=== PATIENT | male | born 1990 | race Caucasian/White ===

== ENCOUNTER 2016-09-06 17:02 | Emergency (ER) | payer MEDICAID ==
[2016-09-06 17:40] VITALS: BP 134/98
[2016-09-06] MEDS ORDERED: Ketorolac 60 MG/2 ML SDV IM ONE (17:58)
[2016-09-06] MEDS ORDERED: cefTRIAXone 1 GM, Lidocaine 1% 2.1 ML IM ONE ×2 (17:58)
[2016-09-06] MEDS ORDERED: Acetaminophen/oxyCODONE 325-5 MG Tab PO ONE (17:59)
--- NOTE | 2016-09-06 18:04 | EDM.PDOC ---
ED HPI GENERAL MEDICAL PROBLEM - General Chief Complaint: ENT Problem Stated Complaint: SWOLLEN JAW Time Seen by Provider: 09/06/16 17:59 Source of Information: Reports: Patient History Limitations: Reports: No Limitations - History of Present Illness INITIAL COMMENTS - FREE TEXT/NARRATIVE: pt has a painful jaw on the rt. He has had some pain for 2 weeks but today it is severe. He is noticing a definite lump on his lower jaw. Onset: Gradual Duration: Day(s): Location: Reports: Face Associated Symptoms: Reports: No Other Symptoms Right Lower Oral/Mouth Pain Score (Numeric/FACES): 8 - Related Data Allergies Allergy/AdvReac Type Severity Reaction Status Date / Time Penicillins Allergy Cannot Verified 09/06/16 17:44 Remember Home Meds: Home Meds NK [No Known Home Meds] 09/06/16 [History] Past Medical History Respiratory History: Reports: Asthma Musculoskeletal History: Reports: Fracture - Past Surgical History HEENT Surgical History: Reports: Tonsillectomy Musculoskeletal Surgical History: Reports: Other (See Below) Other Musculoskeletal Surgeries/Procedures:: left elbow surgery Social & Family History - Tobacco Use Smoking Status *Q: Heavy Tobacco Smoker Years of Tobacco use: 3 Packs/Tins Daily: 1 - Recreational Drug Use Recreational Drug Use: No ED ROS ENT - Review of Systems Review Of Systems: See Below Constitutional: Reports: Chills HEENT: Reports: Dental Pain, Other (pt has severe pin in rt jaw. ) Respiratory: Reports: No Symptoms Cardiovascular: Reports: No Symptoms Endocrine: Reports: No Symptoms GI/Abdominal: Reports: No Symptoms : Reports: No Symptoms ED EXAM, ENT - Physical Exam Exam: See Below Text/Narrative:: pt has a palbable lump on th rt jaw area. This is very tender. His gumline is very tender, He has a carious molar in the area. Exam Limited By: No Limitations General Appearance: Alert, Severe Distress Ears: Normal TMs Nose: Normal Inspection Mouth/Throat: Dental Abcess Head: Atraumatic Neck: Lymphadenopathy (R) Respiratory/Chest: No Respiratory Distress Cardiovascular: Regular Rate, Rhythm Course - Vital Signs Last Recorded V/S: Last Vital Signs Temp 36.3 C 09/06/16 17:43 Pulse 77 09/06/16 17:43 Resp 18 09/06/16 17:43 BP 134/98 H 09/06/16 17:43 Pulse Ox 95 09/06/16 17:43 - Orders/Labs/Meds Orders: Active Orders 24 hr Category Date Time Status Acetaminophen/oxyCODONE [Percocet 325-5 MG] Med 09/06/16 17:59 Once 1 tab PO ONETIME ONE Meds: Medications Discontinued Medications Generic Name Dose Route Start Last Admin Trade Name Noé PRN Reason Stop Dose Admin Ceftriaxone Sodium 1 gm/ 0 gm 09/06/16 17:58 Lidocaine HCl 2.1 ml IM 09/06/16 17:59 ONETIME ONE Ketorolac Tromethamine 60 mg 09/06/16 17:58 Toradol IM 09/06/16 17:59 ONETIME ONE - Re-Assessments/Exams Free Text/Narrative Re-Assessment/Exam: 09/06/16 18:03 pt was given rocephen 1 gm im and torodol 60mg im. He was also given percocet 5/ 325 q6h for pain. Departure - Departure Time of Disposition: 18:04 Disposition: Home, Self-Care 01 Condition: fair Clinical Impression: Abscessed tooth - Discharge Information Forms: ED Department Discharge Care Plan Goals: dental referal for , clindomycin 300mg tid, motrin 600mg tid, norco 5 /325 q6h prn for pain - My Orders Last 24 Hours: My Active Orders 09/06/16 17:59 Acetaminophen/oxyCODONE [Percocet 325-5 MG] 1 tab PO ONETIME ONE - Assessment/Plan Last 24 Hours: My Active Orders 09/06/16 17:59 Acetaminophen/oxyCODONE [Percocet 325-5 MG] 1 tab PO ONETIME ONE
== END 2016-09-06 19:04 | disposition home or self-care (01) ==
LOC: JP.ED 17:02
DX: K04.7 Periapical abscess without sinus (principal); J45.909 Unspecified asthma, uncomplicated; F17.210 Nicotine dependence, cigarettes, uncomplicated; Z88.0 Allergy status to penicillin; Z98.890 Other specified postprocedural states
CPT/HCPCS: 96372; 99283; A9270; J0696; J1885

== ENCOUNTER 2021-08-17 20:36 | Emergency (ER) | payer MEDICAID ==
[2021-08-17 20:55] VITALS: BP 116/81; PULSE 81
[2021-08-17] MEDS ORDERED: Ketorolac 30 MG/ML SDV IM ONE (21:40)
== END 2021-08-17 22:23 | disposition home or self-care (01) ==
LOC: JP.ED 20:36
DX: M25.512 Pain in left shoulder (principal); F17.210 Nicotine dependence, cigarettes, uncomplicated; Z88.0 Allergy status to penicillin
CPT/HCPCS: 96372; 99282; 99283; J1885